=== PATIENT | female | born 1945 | race Caucasian/White ===

== ENCOUNTER 2021-03-12 21:29 | Inpatient (IN) ==
[2021-03-13] MEDS ORDERED: *HR* Promethazine 25 MG/ML VIAL IM PRN (00:09)
[2021-03-13] MEDS ORDERED: Naloxone 0.4 MG/ML INJ IVP PRN (00:09)
[2021-03-13] MEDS ORDERED: Ondansetron 4 MG/2 ML VIAL IVP PRN (00:09)
[2021-03-13] MEDS ORDERED: Ringers Solution, Lactated 1,000 ML IVC SCH (00:15)
[2021-03-13 05:06] LABS: Basophils % 0.1 %; Eosinophils # 0.1 K/mcL (0.0-0.6); Hematocrit 31.2 % (35.3-44.9); Hemoglobin 9.9 g/dL (11.5-15.4); Immature Granulocytes % 0.4 % (0-4); Lymphocytes # 1.8 K/mcL (0.6-4.6); Lymphocytes % 19.5 %; Mean Corpuscular HGB Conc 31.7 g/dL (31.6-35.5); Mean Corpuscular Hemoglobin 26.9 pg (28.0-33.3); Mean Corpuscular Volume 84.8 fL (83.0-100.0); Mean Platelet Volume 9.5 fL (9.4-12.4); Neutrophils # 6.1 K/mcL (1.6-8.9); Platelet Count 206 K/mcL (140-400); Red Blood Count 3.68 M/mcL (3.82-4.97); Red Cell Distribution Width 13.9 % (11.5-14.5)
[2021-03-13 05:13] LABS: INR 1.1; Prothrombin Time 12.7 Seconds (9.4-12.1)
[2021-03-13 05:22] LABS: Alanine Aminotransferase 8 Units/L (7-52); Albumin 3.3 g/dL (3.5-5.7); Albumin/Globulin Ratio 1.7 (1.1-2.2); Alkaline Phosphatase 84 Units/L (34-104); Aspartate Amino Transferase 10 Units/L (13-39); BUN/Creatinine Ratio 18 (6-26); Bilirubin,Total 0.4 mg/dL (0.3-1.0); Blood Urea Nitrogen 17 mg/dL (8-23); Calcium 8.7 mg/dL (8.6-10.3); Carbon Dioxide 37 mEq/L (23-29); Chloride 93 mEq/L (98-107); Glucose 115 mg/dL (70-105); Lactate Dehydrogenase 126 Units/L (140-271); Magnesium 1.7 mg/dL (1.6-2.6); Osmolality,Calculated 284 (280-300); Potassium 3.9 mEq/L (3.5-5.1); Sodium 136 mEq/L (136-145); Total Protein 5.3 g/dL (6.4-8.9); eGFR For African Americans > 60 (> 60); eGFR For Non-African Americans 58 (> 60)
[2021-03-13] MEDS: *HR* Enoxaparin 40 MG/0.4 ML SYRINGE SQ SCH (05:30)
[2021-03-13] MEDS ORDERED: Dexamethasone Sodium Phos/PF 10 MG/ML VIAL IVP SCH (09:00)
[2021-03-13 09:08] LABS: C-Reactive Protein 215 mg/L (Less than 10)
[2021-03-13 09:39] LABS: Ferritin 52 ng/mL (10-120)
[2021-03-13] MEDS ORDERED: Furosemide 40 MG TABLET PO PRN (10:05)
[2021-03-13] MEDS ORDERED: Ipratropium/Albuterol Neb 3 ML IH PRN (10:05)
[2021-03-13] MEDS ORDERED: Sennosides 8.6 MG TABLET PO PRN (10:05)
[2021-03-13] MEDS ORDERED: atenoloL 25 MG TABLET PO SCH (11:15)
[2021-03-13] MEDS: hydrOXYzine pamoate 25 MG CAPSULE PO SCH ×2 (11:33→21:18)
[2021-03-13] MEDS: ARIPiprazole 10 MG TABLET PO SCH (11:34)
[2021-03-13] MEDS: Gabapentin 100 MG CAPSULE PO SCH ×3 (11:34→21:18)
[2021-03-13] MEDS: Budesonide/Formoterol 80/4.5 1 PUFF INH IH SCH ×2 (11:55→21:09)
[2021-03-13] MEDS: Baclofen 10 MG TABLET PO SCH ×3 (15:24→21:18)
[2021-03-13] MEDS ORDERED: atenoloL 25 MG TABLET PO ONE (16:37)
[2021-03-13] MEDS: Ergocalciferol (VIT D2) 50,000 UNIT (1.25MG) CAP PO SCH (17:37)
[2021-03-14] MEDS: *HR* Enoxaparin 40 MG/0.4 ML SYRINGE SQ SCH (05:28)
[2021-03-14 05:34] LABS: Hematocrit 30.6 % (35.3-44.9); Hemoglobin 9.3 g/dL (11.5-15.4); Mean Corpuscular HGB Conc 30.4 g/dL (31.6-35.5); Mean Corpuscular Hemoglobin 26.3 pg (28.0-33.3); Mean Corpuscular Volume 86.7 fL (83.0-100.0); Mean Platelet Volume 9.1 fL (9.4-12.4); Platelet Count 200 K/mcL (140-400); Red Blood Count 3.53 M/mcL (3.82-4.97); White Blood Count 6.9 K/mcL (4.3-11.1)
[2021-03-14 05:48] LABS: BUN/Creatinine Ratio 15 (6-26); Blood Urea Nitrogen 14 mg/dL (8-23); Calcium 8.9 mg/dL (8.6-10.3); Carbon Dioxide 37 mEq/L (23-29); Chloride 95 mEq/L (98-107); Glucose 126 mg/dL (70-105); Magnesium 2.1 mg/dL (1.6-2.6); Osmolality,Calculated 286 (280-300); Potassium 3.5 mEq/L (3.5-5.1); Sodium 137 mEq/L (136-145); eGFR For African Americans > 60 (> 60); eGFR For Non-African Americans 57 (> 60)
[2021-03-14] MEDS: Gabapentin 100 MG CAPSULE PO SCH ×3 (08:20→21:00)
[2021-03-14] MEDS: hydrOXYzine pamoate 25 MG CAPSULE PO SCH ×2 (08:21→20:59)
[2021-03-14] MEDS: Dexamethasone Sodium Phos/PF 10 MG/ML VIAL IVP SCH (08:22)
[2021-03-14] MEDS: ARIPiprazole 10 MG TABLET PO SCH (08:22)
[2021-03-14] MEDS: atenoloL 25 MG TABLET PO SCH ×2 (08:22→13:46)
[2021-03-14] MEDS: Baclofen 10 MG TABLET PO SCH ×4 (08:22→21:00)
[2021-03-14] MEDS: Budesonide/Formoterol 80/4.5 1 PUFF INH IH SCH ×2 (11:54→21:17)
[2021-03-14 12:34] LABS: C-Reactive Protein 181 mg/L (Less than 10)
[2021-03-14] MEDS ORDERED: Furosemide 20 MG/2 ML VIAL IVP ONE ×2 (12:59→13:12)
[2021-03-14 13:11] LABS: Ferritin 84 ng/mL (10-120)
[2021-03-14] MEDS: levoFLOXacin 750 MG/150 ML 750 MG/150 ML BAG IVPB SCH (15:33)
[2021-03-14 20:04] LABS: Adenovirus Not Detected (Not Detect); Coronavirus 229E Not Detected (Not Detect); Coronavirus HKU1 Not Detected (Not Detect); Coronavirus NL63 Not Detected (Not Detect); Coronavirus OC43 Not Detected (Not Detect)
[2021-03-14 20:06] LABS: Bordetella Pertussis Not Detected (Not Detect); Chlamydophila pneumoniae Not Detected (Not Detect); Human Metapneumovirus Not Detected (Not Detect); Human Rhinovirus/Enterovirus Not Detected (Not Detect); Influenza A Subtype 2009 H1 Not Detected (Not Detect); Influenza B Not Detected (Not Detect); Mycoplasma pneumoniae Not Detected (Not Detect); Parainfluenza Virus 1 Not Detected (Not Detect); Parainfluenza Virus 2 Not Detected (Not Detect); Parainfluenza Virus 3 Not Detected (Not Detect); Parainfluenza Virus 4 Not Detected (Not Detect); Respiratory Syncytial Virus Not Detected (Not Detect); SARS-CoV-2 DETECTED (Not Detect)
[2021-03-15] MEDS: *HR* Enoxaparin 40 MG/0.4 ML SYRINGE SQ SCH (05:20)
[2021-03-15 07:16] LABS: Hematocrit 29.7 % (35.3-44.9); Hemoglobin 9.2 g/dL (11.5-15.4); Mean Corpuscular Hemoglobin 26.2 pg (28.0-33.3); Mean Corpuscular Volume 84.6 fL (83.0-100.0); Mean Platelet Volume 9.5 fL (9.4-12.4); Platelet Count 211 K/mcL (140-400); Red Blood Count 3.51 M/mcL (3.82-4.97); Red Cell Distribution Width 13.2 % (11.5-14.5); White Blood Count 5.8 K/mcL (4.3-11.1)
[2021-03-15 07:31] LABS: BUN/Creatinine Ratio 16 (6-26); Blood Urea Nitrogen 12 mg/dL (8-23); Calcium 8.7 mg/dL (8.6-10.3); Carbon Dioxide 36 mEq/L (23-29); Chloride 94 mEq/L (98-107); Glucose 185 mg/dL (70-105); Osmolality,Calculated 289 (280-300); Potassium 3.7 mEq/L (3.5-5.1); Sodium 137 mEq/L (136-145); eGFR For African Americans > 60 (> 60); eGFR For Non-African Americans > 60 (> 60)
[2021-03-15] MEDS: Furosemide 40 MG/4 ML VIAL IVP SCH (09:35)
[2021-03-15] MEDS: Baclofen 10 MG TABLET PO SCH ×4 (09:35→20:47)
[2021-03-15] MEDS: Gabapentin 100 MG CAPSULE PO SCH ×3 (09:35→20:48)
[2021-03-15] MEDS: Dexamethasone Sodium Phos/PF 10 MG/ML VIAL IVP SCH (09:35)
[2021-03-15] MEDS: atenoloL 25 MG TABLET PO SCH (09:35)
[2021-03-15] MEDS: ARIPiprazole 10 MG TABLET PO SCH (09:35)
[2021-03-15] MEDS: hydrOXYzine pamoate 25 MG CAPSULE PO SCH ×2 (09:49→20:46)
[2021-03-15] MEDS: Budesonide/Formoterol 80/4.5 1 PUFF INH IH SCH ×2 (10:12→22:25)
[2021-03-15 11:43] LABS: Bilirubin,Urine Negative (Negative); Blood,Urine Negative (Negative); Clarity,Urine Clear (Clear); Color,Urine Yellow (Yellow); Glucose,Urine (UA) Normal (Normal); Ketones,Urine Negative (Negative); Leukocyte Esterase,Urine Negative (Negative); Nitrite,Urine Negative (Negative); PH,Urine 6.5 pH Units (5.0-8.0); Protein,Urine Negative (Neg-Trace); Urobilinogen,Urine Normal (Normal)
[2021-03-15] MEDS: levoFLOXacin 750 MG/150 ML 750 MG/150 ML BAG IVPB SCH (14:44)
[2021-03-15 17:55] LABS: Albumin 3.4 g/dL (3.5-5.7); Albumin/Globulin Ratio 1.2 (1.1-2.2); Bilirubin,Indirect 0.2 mg/dL (0.0-1.0); Bilirubin,Total 0.2 mg/dL (0.3-1.0); Globulin 2.9 g/dL (2.4-3.5); Total Protein 6.3 g/dL (6.4-8.9)
[2021-03-15] MEDS: *HR* LORazepam 1 MG TABLET PO PRN (22:21)
[2021-03-16] MEDS: *HR* Enoxaparin 40 MG/0.4 ML SYRINGE SQ SCH (05:54)
[2021-03-16 06:19] LABS: Hematocrit 30.8 % (35.3-44.9); Hemoglobin 9.6 g/dL (11.5-15.4); Mean Corpuscular HGB Conc 31.2 g/dL (31.6-35.5); Mean Corpuscular Hemoglobin 26.1 pg (28.0-33.3); Mean Corpuscular Volume 83.7 fL (83.0-100.0); Mean Platelet Volume 9.3 fL (9.4-12.4); Platelet Count 256 K/mcL (140-400); Red Blood Count 3.68 M/mcL (3.82-4.97); Red Cell Distribution Width 13.2 % (11.5-14.5); White Blood Count 7.7 K/mcL (4.3-11.1)
[2021-03-16 06:44] LABS: BUN/Creatinine Ratio 23 (6-26); Blood Urea Nitrogen 16 mg/dL (8-23); Calcium 8.6 mg/dL (8.6-10.3); Carbon Dioxide 32 mEq/L (23-29); Chloride 95 mEq/L (98-107); Glucose 136 mg/dL (70-105); Osmolality,Calculated 283 (280-300); Potassium 3.5 mEq/L (3.5-5.1); Sodium 135 mEq/L (136-145); eGFR For African Americans > 60 (> 60); eGFR For Non-African Americans > 60 (> 60)
[2021-03-16 08:39] LABS: Ferritin 92 ng/mL (10-120)
[2021-03-16] MEDS: Gabapentin 100 MG CAPSULE PO SCH ×3 (08:49→21:34)
[2021-03-16] MEDS: atenoloL 25 MG TABLET PO SCH (08:49)
[2021-03-16] MEDS: ARIPiprazole 10 MG TABLET PO SCH (08:49)
[2021-03-16] MEDS: *HR* LORazepam 1 MG TABLET PO PRN ×2 (08:50→22:49)
[2021-03-16] MEDS: hydrOXYzine pamoate 25 MG CAPSULE PO SCH ×2 (08:50→21:34)
[2021-03-16] MEDS: Furosemide 40 MG/4 ML VIAL IVP SCH (08:50)
[2021-03-16] MEDS: Baclofen 10 MG TABLET PO SCH ×4 (08:50→21:34)
[2021-03-16] MEDS: Dexamethasone Sodium Phos/PF 10 MG/ML VIAL IVP SCH (08:51)
[2021-03-16] MEDS: Budesonide/Formoterol 80/4.5 1 PUFF INH IH SCH ×2 (09:30→22:13)
[2021-03-16] MEDS: levoFLOXacin 750 MG/150 ML 750 MG/150 ML BAG IVPB SCH (15:52)
[2021-03-17] MEDS: *HR* Enoxaparin 40 MG/0.4 ML SYRINGE SQ SCH (05:07)
[2021-03-17] MEDS: Gabapentin 100 MG CAPSULE PO SCH ×3 (08:42→21:13)
[2021-03-17] MEDS: atenoloL 25 MG TABLET PO SCH (08:42)
[2021-03-17] MEDS: ARIPiprazole 10 MG TABLET PO SCH (08:42)
[2021-03-17] MEDS: *HR* LORazepam 1 MG TABLET PO PRN ×2 (08:42→17:59)
[2021-03-17] MEDS: Furosemide 40 MG/4 ML VIAL IVP SCH (08:42)
[2021-03-17] MEDS: hydrOXYzine pamoate 25 MG CAPSULE PO SCH ×2 (08:42→21:12)
[2021-03-17] MEDS: Baclofen 10 MG TABLET PO SCH ×4 (08:42→21:13)
[2021-03-17] MEDS: Dexamethasone Sodium Phos/PF 10 MG/ML VIAL IVP SCH (08:43)
[2021-03-17] MEDS: Budesonide/Formoterol 80/4.5 1 PUFF INH IH SCH ×2 (10:19→22:14)
[2021-03-17] MEDS: levoFLOXacin 750 MG/150 ML 750 MG/150 ML BAG IVPB SCH (13:23)
[2021-03-17] MEDS ORDERED: Furosemide 40 MG/4 ML VIAL IVP ONE (16:00)
[2021-03-17] MEDS: Acetaminophen 325 MG TABLET PO PRN (17:59)
[2021-03-17] MEDS: Melatonin 3 MG TABLET PO PRN (21:13)
[2021-03-18] MEDS: *HR* Enoxaparin 40 MG/0.4 ML SYRINGE SQ SCH (05:25)
[2021-03-18] MEDS: Acetaminophen 325 MG TABLET PO PRN ×2 (06:35→21:41)
[2021-03-18] MEDS: Baclofen 10 MG TABLET PO SCH ×4 (08:22→21:30)
[2021-03-18] MEDS: ARIPiprazole 10 MG TABLET PO SCH (08:22)
[2021-03-18] MEDS: atenoloL 25 MG TABLET PO SCH (08:23)
[2021-03-18] MEDS: hydrOXYzine pamoate 25 MG CAPSULE PO SCH ×2 (08:23→21:29)
[2021-03-18] MEDS: Gabapentin 100 MG CAPSULE PO SCH ×3 (08:23→21:29)
[2021-03-18] MEDS: Furosemide 40 MG/4 ML VIAL IVP SCH (08:24)
[2021-03-18] MEDS: Dexamethasone Sodium Phos/PF 10 MG/ML VIAL IVP SCH (08:24)
[2021-03-18] MEDS: Budesonide/Formoterol 80/4.5 1 PUFF INH IH SCH ×2 (10:31→20:47)
[2021-03-18] MEDS: levoFLOXacin 750 MG/150 ML 750 MG/150 ML BAG IVPB SCH (15:31)
[2021-03-18] MEDS: *HR* LORazepam 1 MG TABLET PO PRN (21:41)
[2021-03-19] MEDS: *HR* Enoxaparin 40 MG/0.4 ML SYRINGE SQ SCH (05:03)
[2021-03-19 05:25] LABS: Hematocrit 33.2 % (35.3-44.9); Hemoglobin 10.4 g/dL (11.5-15.4); Mean Corpuscular HGB Conc 31.3 g/dL (31.6-35.5); Mean Corpuscular Hemoglobin 26.1 pg (28.0-33.3); Mean Corpuscular Volume 83.2 fL (83.0-100.0); Mean Platelet Volume 8.8 fL (9.4-12.4); Platelet Count 323 K/mcL (140-400); Red Blood Count 3.99 M/mcL (3.82-4.97); Red Cell Distribution Width 13.5 % (11.5-14.5)
[2021-03-19 05:43] LABS: Alanine Aminotransferase 6 Units/L (7-52); Albumin 3.5 g/dL (3.5-5.7); Albumin/Globulin Ratio 1.3 (1.1-2.2); Alkaline Phosphatase 58 Units/L (34-104); Aspartate Amino Transferase 7 Units/L (13-39); BUN/Creatinine Ratio 26 (6-26); Bilirubin,Total 0.2 mg/dL (0.3-1.0); Blood Urea Nitrogen 21 mg/dL (8-23); Calcium 8.2 mg/dL (8.6-10.3); Carbon Dioxide 33 mEq/L (23-29); Chloride 95 mEq/L (98-107); Globulin 2.6 g/dL (2.4-3.5); Glucose 246 mg/dL (70-105); Magnesium 1.7 mg/dL (1.6-2.6); Osmolality,Calculated 293 (280-300); Potassium 3.5 mEq/L (3.5-5.1); Sodium 136 mEq/L (136-145); Total Protein 6.1 g/dL (6.4-8.9); eGFR For African Americans > 60 (> 60); eGFR For Non-African Americans > 60 (> 60)
[2021-03-19] MEDS: Budesonide/Formoterol 80/4.5 1 PUFF INH IH SCH ×2 (10:05→21:58)
[2021-03-19 10:17] LABS: C-Reactive Protein 14 mg/L (Less than 10)
[2021-03-19] MEDS: atenoloL 25 MG TABLET PO SCH (10:21)
[2021-03-19] MEDS: Baclofen 10 MG TABLET PO SCH ×4 (10:21→20:40)
[2021-03-19] MEDS: Dexamethasone Sodium Phos/PF 10 MG/ML VIAL IVP SCH (10:21)
[2021-03-19] MEDS: hydrOXYzine pamoate 25 MG CAPSULE PO SCH ×2 (10:21→20:39)
[2021-03-19] MEDS: ARIPiprazole 10 MG TABLET PO SCH (10:22)
[2021-03-19] MEDS: Gabapentin 100 MG CAPSULE PO SCH ×3 (10:22→20:39)
[2021-03-19] MEDS: Furosemide 40 MG/4 ML VIAL IVP SCH (10:22)
[2021-03-19 10:36] LABS: Ferritin 56 ng/mL (10-120)
[2021-03-19] MEDS: levoFLOXacin 750 MG/150 ML 750 MG/150 ML BAG IVPB SCH (15:33)
[2021-03-19] MEDS: Melatonin 3 MG TABLET PO PRN (20:39)
[2021-03-19] MEDS: *HR* LORazepam 1 MG TABLET PO PRN (21:27)
[2021-03-20] MEDS: *HR* Enoxaparin 40 MG/0.4 ML SYRINGE SQ SCH (04:46)
[2021-03-20] MEDS: Baclofen 10 MG TABLET PO SCH ×2 (09:56→13:09)
[2021-03-20] MEDS: atenoloL 25 MG TABLET PO SCH (09:56)
[2021-03-20] MEDS: Gabapentin 100 MG CAPSULE PO SCH ×2 (09:57→13:10)
[2021-03-20] MEDS: ARIPiprazole 10 MG TABLET PO SCH (09:58)
[2021-03-20] MEDS: hydrOXYzine pamoate 25 MG CAPSULE PO SCH (09:58)
[2021-03-20] MEDS: Furosemide 40 MG/4 ML VIAL IVP SCH (09:59)
[2021-03-20] MEDS: Dexamethasone Sodium Phos/PF 10 MG/ML VIAL IVP SCH (09:59)
[2021-03-20] MEDS: Budesonide/Formoterol 80/4.5 1 PUFF INH IH SCH (10:18)
[2021-03-20] MEDS: Ergocalciferol (VIT D2) 50,000 UNIT (1.25MG) CAP PO SCH (10:30)
[2021-03-20 11:49] VITALS: BP 119/75; PULSE 82; RESP 18; TEMP 97.5; O2SAT 97
[2021-03-20] MEDS: levoFLOXacin 750 MG/150 ML 750 MG/150 ML BAG IVPB SCH (13:10)
[2021-03-21] MEDS ORDERED: Furosemide 40 MG TABLET PO SCH (09:00)
[2021-03-21] MEDS ORDERED: Alendronate Sodium [Fosamax] 70 MG Tablet PO SCH (09:00)
[2021-03-21] MEDS ORDERED: dexAMETHasone 4 MG TABLET PO SCH (09:00)
== END 2021-03-20 15:22 | disposition other institution (70) | DRG 177 ==
LOC: INPGRE → SUATTDRO 03-14 14:09
PROVIDERS: ADMIT Internal Medicine; ATTEND Family Medicine

== ENCOUNTER 2021-03-20 15:11 | Inpatient (IN) ==
[2021-03-20] MEDS ORDERED: Naloxone 0.4 MG/ML INJ IVP PRN (15:40)
[2021-03-20] MEDS ORDERED: *HR* Promethazine 25 MG/ML VIAL IM PRN (15:45)
[2021-03-20] MEDS: Ergocalciferol (VIT D2) 50,000 UNIT (1.25MG) CAP PO SCH (17:35)
[2021-03-20] MEDS: Baclofen 10 MG TABLET PO SCH ×2 (17:35→21:14)
[2021-03-20] MEDS: hydrOXYzine pamoate 25 MG CAPSULE PO SCH (21:14)
[2021-03-20] MEDS: *HR* LORazepam 1 MG TABLET PO PRN (21:14)
[2021-03-20] MEDS: Gabapentin 100 MG CAPSULE PO SCH (21:14)
[2021-03-20] MEDS: Melatonin 3 MG TABLET PO PRN (21:14)
[2021-03-20] MEDS: Budesonide/Formoterol 160/4.5 1 PUFF INH IH SCH (21:22)
[2021-03-21] MEDS: *HR* Enoxaparin 40 MG/0.4 ML SYRINGE SQ SCH (06:02)
[2021-03-21] MEDS: Gabapentin 100 MG CAPSULE PO SCH ×3 (08:14→20:49)
[2021-03-21] MEDS: Furosemide 40 MG TABLET PO SCH (08:14)
[2021-03-21] MEDS: hydrOXYzine pamoate 25 MG CAPSULE PO SCH ×2 (08:14→20:49)
[2021-03-21] MEDS: Baclofen 10 MG TABLET PO SCH ×4 (08:14→20:49)
[2021-03-21] MEDS: atenoloL 25 MG TABLET PO SCH (08:14)
[2021-03-21] MEDS: Budesonide/Formoterol 160/4.5 1 PUFF INH IH SCH ×2 (08:32→21:14)
[2021-03-21] MEDS ORDERED: levoFLOXacin 750 MG/150 ML 750 MG/150 ML BAG IVPB SCH (09:00)
[2021-03-21] MEDS ORDERED: dexAMETHasone 4 MG TABLET PO SCH (09:00)
[2021-03-21] MEDS: Melatonin 3 MG TABLET PO PRN (20:49)
[2021-03-21] MEDS: *HR* LORazepam 1 MG TABLET PO PRN (20:49)
[2021-03-21] MEDS: Acetaminophen 325 MG TABLET PO PRN (20:49)
[2021-03-22] MEDS: *HR* Enoxaparin 40 MG/0.4 ML SYRINGE SQ SCH (04:56)
[2021-03-22] MEDS: Ondansetron 4 MG/2 ML VIAL IVP PRN (05:03)
[2021-03-22 06:31] LABS: Hematocrit 36.1 % (35.3-44.9); Hemoglobin 11.6 g/dL (11.5-15.4); Mean Corpuscular HGB Conc 32.1 g/dL (31.6-35.5); Mean Corpuscular Hemoglobin 25.9 pg (28.0-33.3); Mean Corpuscular Volume 80.6 fL (83.0-100.0); Mean Platelet Volume 8.8 fL (9.4-12.4); Platelet Count 372 K/mcL (140-400); Red Blood Count 4.48 M/mcL (3.82-4.97); Red Cell Distribution Width 14.3 % (11.5-14.5); White Blood Count 20.7 K/mcL (4.3-11.1)
[2021-03-22 06:40] LABS: BUN/Creatinine Ratio 28 (6-26); Blood Urea Nitrogen 24 mg/dL (8-23); Carbon Dioxide 32 mEq/L (23-29); Chloride 93 mEq/L (98-107); Glucose 207 mg/dL (70-105); Magnesium 1.6 mg/dL (1.6-2.6); Osmolality,Calculated 288 (280-300); Sodium 134 mEq/L (136-145); eGFR For African Americans > 60 (> 60); eGFR For Non-African Americans > 60 (> 60)
[2021-03-22] MEDS: Budesonide/Formoterol 160/4.5 1 PUFF INH IH SCH ×2 (07:26→20:37)
[2021-03-22] MEDS: Gabapentin 100 MG CAPSULE PO SCH ×3 (09:52→21:41)
[2021-03-22] MEDS: Baclofen 10 MG TABLET PO SCH ×4 (09:52→21:40)
[2021-03-22] MEDS: atenoloL 25 MG TABLET PO SCH (09:52)
[2021-03-22] MEDS: dexAMETHasone 4 MG TABLET PO SCH (09:52)
[2021-03-22] MEDS: Furosemide 40 MG TABLET PO SCH (09:52)
[2021-03-22] MEDS: hydrOXYzine pamoate 25 MG CAPSULE PO SCH ×2 (09:52→21:40)
[2021-03-22] MEDS: *HR* LORazepam 1 MG TABLET PO PRN ×2 (09:53→21:40)
[2021-03-22] MEDS: Acetaminophen 325 MG TABLET PO PRN (10:08)
[2021-03-22 12:19] LABS: Bilirubin,Urine Negative (Negative); Blood,Urine Large (Negative); Clarity,Urine Clear (Clear); Color,Urine Yellow (Yellow); Glucose,Urine (UA) Normal (Normal); Ketones,Urine Negative (Negative); Leukocyte Esterase,Urine Negative (Negative); Nitrite,Urine Negative (Negative); PH,Urine 6.5 pH Units (5.0-8.0); Protein,Urine Negative (Neg-Trace); Urobilinogen,Urine Normal (Normal)
[2021-03-22 12:25] LABS: Budding Yeast,Urine Moderate per hpf (None Seen); RBC,Urine 30-50 per hpf (0-3)
[2021-03-22] MEDS: Melatonin 3 MG TABLET PO PRN (21:40)
[2021-03-23] MEDS: *HR* Enoxaparin 40 MG/0.4 ML SYRINGE SQ SCH (04:17)
[2021-03-23] MEDS: atenoloL 25 MG TABLET PO SCH (08:48)
[2021-03-23] MEDS: hydrOXYzine pamoate 25 MG CAPSULE PO SCH ×2 (08:49→19:44)
[2021-03-23] MEDS: Gabapentin 100 MG CAPSULE PO SCH ×3 (08:49→19:44)
[2021-03-23] MEDS: Furosemide 40 MG TABLET PO SCH (08:49)
[2021-03-23] MEDS: Baclofen 10 MG TABLET PO SCH ×4 (08:49→19:44)
[2021-03-23] MEDS: dexAMETHasone 4 MG TABLET PO SCH (08:50)
[2021-03-23] MEDS: *HR* LORazepam 1 MG TABLET PO PRN ×2 (08:50→14:31)
[2021-03-23] MEDS ORDERED: Fluconazole 100 MG TABLET PO SCH (09:00)
[2021-03-23] MEDS: Budesonide/Formoterol 160/4.5 1 PUFF INH IH SCH ×2 (10:33→20:07)
[2021-03-23] MEDS: Melatonin 3 MG TABLET PO PRN (19:44)
[2021-03-24] MEDS: *HR* Enoxaparin 40 MG/0.4 ML SYRINGE SQ SCH (04:49)
[2021-03-24 06:22] LABS: Hematocrit 37.2 % (35.3-44.9); Hemoglobin 11.6 g/dL (11.5-15.4); Mean Corpuscular HGB Conc 31.2 g/dL (31.6-35.5); Mean Corpuscular Hemoglobin 25.5 pg (28.0-33.3); Mean Corpuscular Volume 81.8 fL (83.0-100.0); Mean Platelet Volume 8.8 fL (9.4-12.4); Platelet Count 327 K/mcL (140-400); Red Blood Count 4.55 M/mcL (3.82-4.97); Red Cell Distribution Width 14.6 % (11.5-14.5); White Blood Count 18.1 K/mcL (4.3-11.1)
[2021-03-24 06:58] LABS: Alanine Aminotransferase 7 Units/L (7-52); Albumin 3.7 g/dL (3.5-5.7); Albumin/Globulin Ratio 1.4 (1.1-2.2); Alkaline Phosphatase 65 Units/L (34-104); Aspartate Amino Transferase 7 Units/L (13-39); BUN/Creatinine Ratio 27 (6-26); Bilirubin,Total 0.4 mg/dL (0.3-1.0); Blood Urea Nitrogen 21 mg/dL (8-23); Calcium 8.9 mg/dL (8.6-10.3); Carbon Dioxide 33 mEq/L (23-29); Chloride 94 mEq/L (98-107); Globulin 2.6 g/dL (2.4-3.5); Glucose 112 mg/dL (70-105); Magnesium 1.8 mg/dL (1.6-2.6); Osmolality,Calculated 284 (280-300); Potassium 4.2 mEq/L (3.5-5.1); Sodium 135 mEq/L (136-145); Total Protein 6.3 g/dL (6.4-8.9); eGFR For African Americans > 60 (> 60); eGFR For Non-African Americans > 60 (> 60)
[2021-03-24] MEDS: Budesonide/Formoterol 160/4.5 1 PUFF INH IH SCH ×2 (08:15→22:15)
[2021-03-24] MEDS: Baclofen 10 MG TABLET PO SCH ×5 (10:49→21:06)
[2021-03-24] MEDS: atenoloL 25 MG TABLET PO SCH (10:49)
[2021-03-24] MEDS: Furosemide 40 MG TABLET PO SCH (10:49)
[2021-03-24] MEDS: Gabapentin 100 MG CAPSULE PO SCH ×3 (10:49→21:06)
[2021-03-24] MEDS: dexAMETHasone 4 MG TABLET PO SCH (10:51)
[2021-03-24] MEDS: hydrOXYzine pamoate 25 MG CAPSULE PO SCH ×2 (10:51→21:07)
[2021-03-24] MEDS: Fluconazole 100 MG TABLET PO SCH (10:52)
[2021-03-24 13:48] LABS: C-Reactive Protein < 5 mg/L (Less than 10)
[2021-03-24] MEDS: Melatonin 3 MG TABLET PO PRN (21:06)
[2021-03-24] MEDS: Sennosides/Docusate Sodium TABLET PO PRN (21:07)
[2021-03-25] MEDS: *HR* Enoxaparin 40 MG/0.4 ML SYRINGE SQ SCH (04:51)
[2021-03-25] MEDS: Ondansetron 4 MG/2 ML VIAL IVP PRN (05:50)
[2021-03-25] MEDS: Budesonide/Formoterol 160/4.5 1 PUFF INH IH SCH ×2 (07:53→22:28)
[2021-03-25] MEDS: hydrOXYzine pamoate 25 MG CAPSULE PO SCH ×2 (10:56→21:08)
[2021-03-25] MEDS: Gabapentin 100 MG CAPSULE PO SCH ×3 (10:57→21:08)
[2021-03-25] MEDS: Baclofen 10 MG TABLET PO SCH ×4 (10:57→21:08)
[2021-03-25] MEDS: atenoloL 25 MG TABLET PO SCH (10:57)
[2021-03-25] MEDS: Furosemide 40 MG TABLET PO SCH (10:57)
[2021-03-25] MEDS: Fluconazole 100 MG TABLET PO SCH (11:14)
[2021-03-25] MEDS ORDERED: Artificial Tears SOLN 15 ML BOTTLE BOTH EYES PRN (18:56)
[2021-03-25] MEDS: Sennosides/Docusate Sodium TABLET PO PRN (21:08)
[2021-03-25] MEDS: *HR* LORazepam 1 MG TABLET PO PRN (23:32)
[2021-03-25] MEDS: Melatonin 3 MG TABLET PO PRN (23:32)
[2021-03-26] MEDS: *HR* Enoxaparin 40 MG/0.4 ML SYRINGE SQ SCH (04:54)
[2021-03-26] MEDS: Budesonide/Formoterol 160/4.5 1 PUFF INH IH SCH ×2 (07:50→21:46)
[2021-03-26] MEDS: Baclofen 10 MG TABLET PO SCH ×4 (09:29→21:13)
[2021-03-26] MEDS: Gabapentin 100 MG CAPSULE PO SCH ×3 (09:29→21:13)
[2021-03-26] MEDS: Furosemide 40 MG TABLET PO SCH (09:29)
[2021-03-26] MEDS: Sennosides/Docusate Sodium TABLET PO PRN ×2 (09:30→21:12)
[2021-03-26] MEDS: atenoloL 25 MG TABLET PO SCH (09:30)
[2021-03-26] MEDS: hydrOXYzine pamoate 25 MG CAPSULE PO SCH ×2 (09:30→21:12)
[2021-03-26] MEDS: Acetaminophen 325 MG TABLET PO PRN (12:25)
[2021-03-26] MEDS: *HR* LORazepam 1 MG TABLET PO PRN (21:12)
[2021-03-26] MEDS: Melatonin 3 MG TABLET PO PRN (21:12)
[2021-03-27] MEDS: *HR* Enoxaparin 40 MG/0.4 ML SYRINGE SQ SCH (04:56)
[2021-03-27 05:55] LABS: Basophils # 0.1 K/mcL (0.0-0.2); Basophils % 0.5 %; Eosinophils # 0.1 K/mcL (0.0-0.6); Eosinophils % 0.8 %; Hematocrit 34.7 % (35.3-44.9); Hemoglobin 11.2 g/dL (11.5-15.4); Immature Granulocytes % 1.9 % (0-4); Lymphocytes # 2.7 K/mcL (0.6-4.6); Mean Corpuscular HGB Conc 32.3 g/dL (31.6-35.5); Mean Corpuscular Volume 80.5 fL (83.0-100.0); Mean Platelet Volume 9.1 fL (9.4-12.4); Monocytes % 6.7 %; Platelet Count 300 K/mcL (140-400); Red Blood Count 4.31 M/mcL (3.82-4.97); Red Cell Distribution Width 14.7 % (11.5-14.5); Segmented Neutrophils % 72.1 %; White Blood Count 15.2 K/mcL (4.3-11.1)
[2021-03-27 06:16] LABS: Alanine Aminotransferase 7 Units/L (7-52); Albumin 3.6 g/dL (3.5-5.7); Albumin/Globulin Ratio 1.6 (1.1-2.2); Alkaline Phosphatase 75 Units/L (34-104); Aspartate Amino Transferase 10 Units/L (13-39); BUN/Creatinine Ratio 25 (6-26); Bilirubin,Total 0.5 mg/dL (0.3-1.0); Blood Urea Nitrogen 19 mg/dL (8-23); Calcium 8.7 mg/dL (8.6-10.3); Carbon Dioxide 32 mEq/L (23-29); Chloride 95 mEq/L (98-107); Globulin 2.3 g/dL (2.4-3.5); Glucose 124 mg/dL (70-105); Osmolality,Calculated 284 (280-300); Potassium 3.9 mEq/L (3.5-5.1); Sodium 135 mEq/L (136-145); Total Protein 5.9 g/dL (6.4-8.9); eGFR For African Americans > 60 (> 60); eGFR For Non-African Americans > 60 (> 60)
[2021-03-27] MEDS: hydrOXYzine pamoate 25 MG CAPSULE PO SCH ×2 (09:05→21:42)
[2021-03-27] MEDS: Gabapentin 100 MG CAPSULE PO SCH ×3 (09:05→21:42)
[2021-03-27] MEDS: *HR* LORazepam 1 MG TABLET PO PRN ×2 (09:05→21:41)
[2021-03-27] MEDS: atenoloL 25 MG TABLET PO SCH (09:06)
[2021-03-27] MEDS: Baclofen 10 MG TABLET PO SCH ×4 (09:06→21:41)
[2021-03-27] MEDS: Furosemide 40 MG TABLET PO SCH (09:06)
[2021-03-27] MEDS: Budesonide/Formoterol 160/4.5 1 PUFF INH IH SCH ×2 (10:30→22:30)
[2021-03-27] MEDS: Ergocalciferol (VIT D2) 50,000 UNIT (1.25MG) CAP PO SCH (18:07)
[2021-03-27] MEDS: Melatonin 3 MG TABLET PO PRN (21:42)
[2021-03-28] MEDS: *HR* Enoxaparin 40 MG/0.4 ML SYRINGE SQ SCH (06:06)
[2021-03-28] MEDS: Furosemide 40 MG TABLET PO SCH (09:47)
[2021-03-28] MEDS: *HR* LORazepam 1 MG TABLET PO PRN ×2 (09:47→20:56)
[2021-03-28] MEDS: atenoloL 25 MG TABLET PO SCH (09:47)
[2021-03-28] MEDS: Gabapentin 100 MG CAPSULE PO SCH ×3 (09:47→20:56)
[2021-03-28] MEDS: hydrOXYzine pamoate 25 MG CAPSULE PO SCH ×2 (09:47→20:55)
[2021-03-28] MEDS: Acetaminophen 325 MG TABLET PO PRN (09:47)
[2021-03-28] MEDS: Baclofen 10 MG TABLET PO SCH ×4 (09:47→20:57)
[2021-03-28] MEDS: Budesonide/Formoterol 160/4.5 1 PUFF INH IH SCH ×2 (10:22→20:46)
[2021-03-28] MEDS: Melatonin 3 MG TABLET PO PRN (20:55)
[2021-03-29] MEDS: *HR* Enoxaparin 40 MG/0.4 ML SYRINGE SQ SCH (06:08)
[2021-03-29] MEDS: Gabapentin 100 MG CAPSULE PO SCH ×3 (07:47→20:37)
[2021-03-29] MEDS: hydrOXYzine pamoate 25 MG CAPSULE PO SCH ×2 (07:47→20:37)
[2021-03-29] MEDS: atenoloL 25 MG TABLET PO SCH (07:47)
[2021-03-29] MEDS: Baclofen 10 MG TABLET PO SCH ×4 (07:48→20:37)
[2021-03-29] MEDS: Furosemide 40 MG TABLET PO SCH (07:48)
[2021-03-29] MEDS: Acetaminophen 325 MG TABLET PO PRN (07:50)
[2021-03-29] MEDS: Budesonide/Formoterol 160/4.5 1 PUFF INH IH SCH ×2 (10:10→21:21)
[2021-03-29] MEDS: Ondansetron ODT 4 MG TAB.RAPDIS SL PRN (13:18)
[2021-03-29] MEDS: *HR* LORazepam 1 MG TABLET PO PRN (20:38)
[2021-03-29] MEDS: Melatonin 3 MG TABLET PO PRN (20:38)
[2021-03-30] MEDS: *HR* Enoxaparin 40 MG/0.4 ML SYRINGE SQ SCH (05:42)
[2021-03-30 07:21] LABS: Basophils % 0.2 %; Eosinophils # 0.2 K/mcL (0.0-0.6); Eosinophils % 1.1 %; Hematocrit 32.7 % (35.3-44.9); Hemoglobin 10.2 g/dL (11.5-15.4); Lymphocytes # 1.9 K/mcL (0.6-4.6); Lymphocytes % 13.7 %; Mean Corpuscular HGB Conc 31.2 g/dL (31.6-35.5); Mean Corpuscular Hemoglobin 25.9 pg (28.0-33.3); Mean Platelet Volume 9.4 fL (9.4-12.4); Monocytes # 1.1 K/mcL (0.0-1.3); Monocytes % 8.1 %; Neutrophils # 10.3 K/mcL (1.6-8.9); Platelet Count 353 K/mcL (140-400); Red Blood Count 3.94 M/mcL (3.82-4.97); Red Cell Distribution Width 15.2 % (11.5-14.5); Segmented Neutrophils % 75.9 %; White Blood Count 13.6 K/mcL (4.3-11.1)
[2021-03-30] MEDS: Furosemide 40 MG TABLET PO SCH ×2 (07:38→16:34)
[2021-03-30 07:40] LABS: Alanine Aminotransferase 8 Units/L (7-52); Albumin 3.5 g/dL (3.5-5.7); Albumin/Globulin Ratio 1.4 (1.1-2.2); Alkaline Phosphatase 77 Units/L (34-104); Aspartate Amino Transferase 9 Units/L (13-39); BUN/Creatinine Ratio 15 (6-26); Bilirubin,Total 0.5 mg/dL (0.3-1.0); Blood Urea Nitrogen 9 mg/dL (8-23); Calcium 8.8 mg/dL (8.6-10.3); Carbon Dioxide 29 mEq/L (23-29); Chloride 95 mEq/L (98-107); Globulin 2.5 g/dL (2.4-3.5); Glucose 152 mg/dL (70-105); Osmolality,Calculated 278 (280-300); Potassium 3.5 mEq/L (3.5-5.1); Sodium 133 mEq/L (136-145); eGFR For African Americans > 60 (> 60); eGFR For Non-African Americans > 60 (> 60)
[2021-03-30] MEDS: atenoloL 25 MG TABLET PO SCH (07:45)
[2021-03-30] MEDS: Gabapentin 100 MG CAPSULE PO SCH ×3 (07:45→22:55)
[2021-03-30] MEDS: Baclofen 10 MG TABLET PO SCH ×4 (07:45→22:54)
[2021-03-30] MEDS: hydrOXYzine pamoate 25 MG CAPSULE PO SCH ×2 (07:45→22:55)
[2021-03-30] MEDS: Budesonide/Formoterol 160/4.5 1 PUFF INH IH SCH ×2 (07:51→20:38)
[2021-03-30] MEDS: Acetaminophen 325 MG TABLET PO PRN (09:50)
[2021-03-30] MEDS: *HR* LORazepam 1 MG TABLET PO PRN ×2 (09:50→22:55)
[2021-03-30 12:37] LABS: Bilirubin,Urine Negative (Negative); Blood,Urine Small (Negative); Clarity,Urine Clear (Clear); Color,Urine Yellow (Yellow); Glucose,Urine (UA) Normal (Normal); Ketones,Urine Negative (Negative); Leukocyte Esterase,Urine Small (Negative); Nitrite,Urine Positive (Negative); Protein,Urine 100 mg/dL (Neg-Trace); Specific Gravity,Urine 1.025 (1.010-1.025); Urobilinogen,Urine Normal (Normal)
[2021-03-30 14:12] LABS: Bacteria,Urine Few per hpf (None-Few); Squamous Epithelial Cell,Urine Few per hpf (None-Few); WBC,Urine 30-50 per hpf (0-3)
[2021-03-30] MEDS: Melatonin 3 MG TABLET PO PRN (22:55)
[2021-03-31] MEDS: *HR* Enoxaparin 40 MG/0.4 ML SYRINGE SQ SCH (06:40)
[2021-03-31] MEDS: Gabapentin 100 MG CAPSULE PO SCH ×3 (08:11→19:45)
[2021-03-31] MEDS: hydrOXYzine pamoate 25 MG CAPSULE PO SCH ×2 (08:11→19:45)
[2021-03-31] MEDS: *HR* LORazepam 1 MG TABLET PO PRN ×2 (08:11→19:45)
[2021-03-31] MEDS: Acetaminophen 325 MG TABLET PO PRN (08:12)
[2021-03-31] MEDS: Baclofen 10 MG TABLET PO SCH ×4 (08:12→19:45)
[2021-03-31] MEDS: atenoloL 25 MG TABLET PO SCH (08:13)
[2021-03-31] MEDS: Furosemide 40 MG TABLET PO SCH (08:13)
[2021-03-31] MEDS: Budesonide/Formoterol 160/4.5 1 PUFF INH IH SCH ×2 (10:16→20:10)
[2021-03-31] MEDS: levoFLOXacin 750 MG TABLET PO SCH (12:25)
[2021-03-31] MEDS: *HR* HYDROcodone/Acet 5/325 mg TABLET PO PRN ×2 (12:26→19:45)
[2021-03-31 14:01] LABS: Basophils % 0.2 %; Eosinophils % 0.4 %; Hematocrit 29.2 % (35.3-44.9); Hemoglobin 9.3 g/dL (11.5-15.4); Immature Granulocytes % 0.9 % (0-4); Lymphocytes # 1.4 K/mcL (0.6-4.6); Lymphocytes % 14.9 %; Mean Corpuscular HGB Conc 31.8 g/dL (31.6-35.5); Mean Corpuscular Hemoglobin 26.1 pg (28.0-33.3); Mean Corpuscular Volume 81.8 fL (83.0-100.0); Mean Platelet Volume 9.2 fL (9.4-12.4); Monocytes # 0.9 K/mcL (0.0-1.3); Monocytes % 10.2 %; Neutrophils # 6.6 K/mcL (1.6-8.9); Platelet Count 348 K/mcL (140-400); Red Blood Count 3.57 M/mcL (3.82-4.97); Red Cell Distribution Width 14.8 % (11.5-14.5); Segmented Neutrophils % 73.4 %; White Blood Count 9.1 K/mcL (4.3-11.1)
[2021-03-31 14:14] LABS: Uric Acid 7.3 mg/dL (2.3-7.6)
[2021-03-31] MEDS: Melatonin 3 MG TABLET PO PRN (19:45)
[2021-04-01] MEDS: *HR* Enoxaparin 40 MG/0.4 ML SYRINGE SQ SCH (05:56)
[2021-04-01] MEDS: *HR* HYDROcodone/Acet 5/325 mg TABLET PO PRN (08:14)
[2021-04-01] MEDS: Baclofen 10 MG TABLET PO SCH ×4 (08:15→21:11)
[2021-04-01] MEDS: hydrOXYzine pamoate 25 MG CAPSULE PO SCH ×2 (08:15→21:11)
[2021-04-01] MEDS: *HR* LORazepam 1 MG TABLET PO PRN ×2 (08:15→16:36)
[2021-04-01] MEDS: Gabapentin 100 MG CAPSULE PO SCH ×3 (08:15→21:10)
[2021-04-01] MEDS: levoFLOXacin 750 MG TABLET PO SCH (08:15)
[2021-04-01] MEDS: atenoloL 25 MG TABLET PO SCH ×2 (08:16→18:23)
[2021-04-01] MEDS: Furosemide 40 MG TABLET PO SCH (08:16)
[2021-04-01] MEDS: Budesonide/Formoterol 160/4.5 1 PUFF INH IH SCH ×2 (10:10→20:22)
[2021-04-01] MEDS: predniSONE 20 MG TABLET PO SCH (11:28)
[2021-04-01] MEDS: Acetaminophen 325 MG TABLET PO PRN (11:28)
[2021-04-01 18:43] LABS: Basophils % 0.2 %; Hematocrit 34.3 % (35.3-44.9); Hemoglobin 10.7 g/dL (11.5-15.4); Immature Granulocytes % 0.9 % (0-4); Lymphocytes # 0.4 K/mcL (0.6-4.6); Lymphocytes % 5.5 %; Mean Corpuscular HGB Conc 31.2 g/dL (31.6-35.5); Mean Corpuscular Volume 83.5 fL (83.0-100.0); Mean Platelet Volume 9.5 fL (9.4-12.4); Monocytes # 0.1 K/mcL (0.0-1.3); Monocytes % 0.9 %; Neutrophils # 5.9 K/mcL (1.6-8.9); Red Blood Count 4.11 M/mcL (3.82-4.97); Red Cell Distribution Width 14.9 % (11.5-14.5); Segmented Neutrophils % 92.5 %; White Blood Count 6.4 K/mcL (4.3-11.1)
[2021-04-01 18:44] LABS: Platelet Count 337 K/mcL (140-400); Platelet Estimate Normal (Normal)
[2021-04-01 18:56] LABS: BUN/Creatinine Ratio 12 (6-26); Blood Urea Nitrogen 9 mg/dL (8-23); Calcium 8.8 mg/dL (8.6-10.3); Carbon Dioxide 23 mEq/L (23-29); Chloride 97 mEq/L (98-107); Glucose 322 mg/dL (70-105); Magnesium 1.5 mg/dL (1.6-2.6); Osmolality,Calculated 285 (280-300); Potassium 4.6 mEq/L (3.5-5.1); Sodium 132 mEq/L (136-145); eGFR For African Americans > 60 (> 60); eGFR For Non-African Americans > 60 (> 60)
[2021-04-01] MEDS: Ondansetron ODT 4 MG TAB.RAPDIS SL PRN (21:10)
[2021-04-02] MEDS: *HR* Enoxaparin 40 MG/0.4 ML SYRINGE SQ SCH (04:09)
[2021-04-02 04:30] LABS: Mean Corpuscular HGB Conc 31.8 g/dL (31.6-35.5); Mean Corpuscular Volume 81.9 fL (83.0-100.0); Mean Platelet Volume 8.9 fL (9.4-12.4); Platelet Count 380 K/mcL (140-400); Red Blood Count 3.42 M/mcL (3.82-4.97); White Blood Count 5.6 K/mcL (4.3-11.1)
[2021-04-02 04:46] LABS: Alanine Aminotransferase 6 Units/L (7-52); Albumin 3.1 g/dL (3.5-5.7); Albumin/Globulin Ratio 1.2 (1.1-2.2); Alkaline Phosphatase 70 Units/L (34-104); Aspartate Amino Transferase 6 Units/L (13-39); BUN/Creatinine Ratio 18 (6-26); Bilirubin,Total 0.2 mg/dL (0.3-1.0); Blood Urea Nitrogen 11 mg/dL (8-23); Calcium 8.7 mg/dL (8.6-10.3); Carbon Dioxide 30 mEq/L (23-29); Chloride 100 mEq/L (98-107); Globulin 2.5 g/dL (2.4-3.5); Glucose 212 mg/dL (70-105); Magnesium 1.6 mg/dL (1.6-2.6); Osmolality,Calculated 292 (280-300); Potassium 3.6 mEq/L (3.5-5.1); Sodium 138 mEq/L (136-145); Total Protein 5.6 g/dL (6.4-8.9); eGFR For African Americans > 60 (> 60); eGFR For Non-African Americans > 60 (> 60)
[2021-04-02 05:09] LABS: Hemoglobin 8.9 g/dL (11.5-15.4)
[2021-04-02] MEDS: levoFLOXacin 750 MG TABLET PO SCH (09:08)
[2021-04-02] MEDS: Gabapentin 100 MG CAPSULE PO SCH ×3 (09:15→20:35)
[2021-04-02] MEDS: Furosemide 40 MG TABLET PO SCH (09:15)
[2021-04-02] MEDS: hydrOXYzine pamoate 25 MG CAPSULE PO SCH ×2 (09:15→20:34)
[2021-04-02] MEDS: predniSONE 20 MG TABLET PO SCH (09:15)
[2021-04-02] MEDS: Baclofen 10 MG TABLET PO SCH ×4 (09:16→20:35)
[2021-04-02] MEDS: atenoloL 25 MG TABLET PO SCH (09:16)
[2021-04-02] MEDS: Budesonide/Formoterol 160/4.5 1 PUFF INH IH SCH ×2 (10:18→21:22)
[2021-04-02 12:55] LABS: Hematocrit 30.5 % (35.3-44.9); Hemoglobin 9.8 g/dL (11.5-15.4)
[2021-04-02] MEDS: *HR* HYDROcodone/Acet 5/325 mg TABLET PO PRN ×2 (16:38→20:35)
[2021-04-02] MEDS: Melatonin 3 MG TABLET PO PRN (20:34)
[2021-04-02] MEDS: Amoxicillin 500 MG CAPSULE PO SCH (20:34)
[2021-04-02] MEDS: *HR* LORazepam 1 MG TABLET PO PRN (20:35)
[2021-04-03] MEDS: *HR* HYDROcodone/Acet 5/325 mg TABLET PO PRN ×2 (03:48→16:08)
[2021-04-03] MEDS: *HR* Enoxaparin 40 MG/0.4 ML SYRINGE SQ SCH (03:48)
[2021-04-03 06:52] VITALS: BP 114/67; PULSE 81; TEMP 97.6
[2021-04-03] MEDS: Baclofen 10 MG TABLET PO SCH ×2 (07:45→13:32)
[2021-04-03] MEDS: atenoloL 25 MG TABLET PO SCH (07:45)
[2021-04-03] MEDS: Furosemide 40 MG TABLET PO SCH (07:45)
[2021-04-03] MEDS: hydrOXYzine pamoate 25 MG CAPSULE PO SCH (07:45)
[2021-04-03] MEDS: Amoxicillin 500 MG CAPSULE PO SCH (07:46)
[2021-04-03] MEDS: predniSONE 20 MG TABLET PO SCH (07:46)
[2021-04-03] MEDS: Gabapentin 100 MG CAPSULE PO SCH ×2 (07:46→13:32)
[2021-04-03] MEDS: Budesonide/Formoterol 160/4.5 1 PUFF INH IH SCH (09:28)
[2021-04-03 09:32] VITALS: RESP 20; O2SAT 97
== END 2021-04-03 16:10 | disposition home health service (06) ==
LOC: INPGRE 15:24
PROVIDERS: ADMIT Family Medicine; ATTEND Family Medicine